=== PATIENT | male | born 1930 | race Caucasian/White ===

== ENCOUNTER 2016-06-14 16:16 | Inpatient (IN) | payer MEDICARE ==
[~2016-06-14] VITALS: Ht 175.3 cm; Wt 60.7 kg
[2016-06-14 16:49] LABS: BASOPHILS % (AUTO) 0 % (0-2); EOSINOPHILS # (AUTO) 0.2 10^3uL; EOSINOPHILS % (AUTO) 2 % (0-4); LYMPHOCYTES # (AUTO) 1.2 X10^3; MEAN CORPUSCULAR HGB CONC 33.6 g/dL (31.0-37.0); MEAN PLATELET VOLUME 10.3 FL (6.0-9.5); MONOCYTES # (AUTO) 0.6 X10^3; MONOCYTES % (AUTO) 10 % (3-11); NEUTROPHILS # (AUTO) 4.2 X10^3; NEUTROPHILS % (AUTO) 68 % (51-67); PLATELET COUNT 207 10^3uL (150-450); WHITE BLOOD COUNT 6.14 10^3uL (4.0-11.0)
[2016-06-14 16:51] LABS: MEAN CORPUSCULAR HEMOGLOBIN 33.2 PG (26.0-34.0); MEAN CORPUSCULAR VOLUME 99 FL (80-100)
[2016-06-14 16:58] LABS: ALBUMIN 4.2 g/dL (3.4-5.0); ANION GAP 16.1 MEQ/L (3-15); CALCULATED IONIZED CALCIUM 4.2 mg/dL (3.8-4.6); TOTAL PROTEIN 7.3 g/dL (6.4-8.5)
[2016-06-14 19:35] VITALS: BP 132/71
[2016-06-14] MEDS ORDERED: morphine INJ 4 MG/ML 1 ML SYRINGE IV PRN (19:40)
[2016-06-14] MEDS ORDERED: PROMETHAZINE HCL INJ 12.5 MG in SODIUM CHLORIDE 25 ML IV PRN (19:40)
[2016-06-14] MEDS ORDERED: POLYETHYLENE GLYCOL 17 GM (MIRALAX) PACKET PO PRN (19:40)
[2016-06-14] MEDS ORDERED: DOCUSATE SODIUM 100 MG (COLACE) CAP PO PRN (19:40)
[2016-06-14] MEDS ORDERED: MAGNESIUM HYDROXIDE 80MG/ML (MILK OF MAGNESIA) 30 ML UDC PO PRN (19:40)
[2016-06-14] MEDS ORDERED: ONDANSETRON 2 MG/ML (Z0FRAN) 2 ML VIAL IV PRN (19:40)
[2016-06-14] MEDS ORDERED: ONDANSETRON 4 MG (ZOFRAN) ORAL DISSOLVE TAB PO PRN (19:40)
--- NOTE | 2016-06-14 20:15 | NUR ---
Admitted to room. Oriented to room and hospital procedures. Daughter with patient. Patient is very weak. History taken from daughter. Patient is pale. Does shake his head up and down for yes. Web Solutions Architect very weak bilaterally. Bed alarm on fro safety. Tabs on fro safety. Fall precautions maintained.
[2016-06-14 20:44] VITALS: BP 132/71
--- NOTE | 2016-06-14 22:00 | NUR ---
Repositioned in bed. Verbalizes short sentences. Bed alarm on. Patient wanting to go to the bathroom. Did not understand how to use urinal. Stood patient at the side of the bed with two staff members. Patient still was not able to comprehend using the urinal. Returned patient back to bed. Patient had large soft bm in adult undergarment when he arrived from ED. No skin breakdown or erythema on coccyx or buttocks area. Skin very dry on feet. Scds placed on for a short while, then patient started to become restless and combative with staff. Scds removed for the time being.
[2016-06-14] MEDS: D5 1/2 NS W/KCL 20 MEQ/L 1,000 ML IV SCH (22:01)
[2016-06-14] MEDS: LORazepam 2 MG/ML (ATIVAN) 1 ML VIAL IV PRN (23:09)
--- NOTE | 2016-06-14 23:09 | NUR ---
Ativan 0.5mg administered IV for restlessness and combativeness. Wanting to go home. Wanting his car. At times patient does not appear to comprehend what staff is trying to tell him. Reoriented numerous times.
[2016-06-15] VITALS (8 sets, daily range): BP systolic 124–176; BP diastolic 58–99
[2016-06-15] MEDS ORDERED: D5W (IVPB) 50 ML IV ONE
[2016-06-15] MEDS: HALOPERIDOL 5 MG/ML (HALDOL) 1 ML AMP IV PRN ×2 (00:07→23:28)
--- NOTE | 2016-06-15 00:09 | NUR ---
Haldol 2mg diluted in 10cc D5W, administered IV over ten minutes. Patient combative and verbally upset with staff. Hand bottled beverage inspector weak, yet at times, bottled beverage inspector are good bilaterally. Moving constantly. Warm blankets placed on patient. He did relax for approximately ten minutes. Turns and rolls back and forth in bed. bed alarm remains on for safety.
[2016-06-15] MEDS: LORazepam 2 MG/ML (ATIVAN) 1 ML VIAL IV PRN ×2 (00:30→03:36)
--- NOTE | 2016-06-15 02:00 | NUR ---
Patient very restless. Yells out at times. Wanting to go home. Rolls back and forth in bed. Has made several attempts to get out of bed. Reoriented several times. Bed and tabs alarms on for safety.
[2016-06-15] MEDS ORDERED: SODIUM CHLORIDE FLUSH 10 ML SYR IV PRN (03:30)
[2016-06-15] MEDS ORDERED: SODIUM CHLORIDE FLUSH 3 ML SYR IV PRN (03:30)
--- NOTE | 2016-06-15 03:36 | NUR ---
Ativan 0.5mg administered IV for restlessness. Bed alarm on.
--- NOTE | 2016-06-15 05:30 | NUR ---
Patient has not rested yet tonight. Turns and moves legs constantly.Is not combative this morning. Bed alarm on. Skin warm and dry. Color pale. Verbalizes at times, but does not make sense. Incontinent several times tonight a large amount. Good francesca care given. Is not oriented to self, or place or time. Bed alarm on.
[2016-06-15 06:12] LABS: BASOPHILS % (AUTO) 0 % (0-2); EOSINOPHILS % (AUTO) 1 % (0-4); LYMPHOCYTES # (AUTO) 0.8 X10^3; MEAN CORPUSCULAR HGB CONC 35.1 g/dL (31.0-37.0); MEAN CORPUSCULAR VOLUME 95 FL (80-100); MEAN PLATELET VOLUME 10.3 FL (6.0-9.5); MONOCYTES # (AUTO) 0.7 X10^3; MONOCYTES % (AUTO) 12 % (3-11); NEUTROPHILS # (AUTO) 4.3 X10^3; NEUTROPHILS % (AUTO) 74 % (51-67); PLATELET COUNT 183 10^3uL (150-450)
[2016-06-15 06:28] LABS: MEAN CORPUSCULAR HEMOGLOBIN 33.4 PG (26.0-34.0)
[2016-06-15 06:51] LABS: ALBUMIN 3.7 g/dL (3.4-5.0); ANION GAP 11.5 MEQ/L (3-15)
--- NOTE | 2016-06-15 07:36 | NUR ---
UA obtained per sterile technique and taken to LAB. Bed alarm on.
[2016-06-15 07:43] LABS: BILIRUBIN,URINE Negative (Negative); CLARITY,URINE Clear; COLOR,URINE Yellow; GLUCOSE, URINE (UA) Negative (Negative); LEUKOCYTE ESTERASE ,URINE Negative (Negative); PH,URINE 7.5 (5.0 - 8.0); UROBILINOGEN,URINE 0.2 mg/dL (0.2-1.0)
[2016-06-15 08:03] LABS: URINE CENTRIFUGED VOLUME 12 mL
[2016-06-15 08:04] LABS: RBC,URINE 50-100 /HPF
[2016-06-15] MEDS ORDERED: morphine INJ 2 MG/ML 1 ML SYRINGE IV PRN (08:10)
[2016-06-15] MEDS: D5 1/2 NS W/KCL 20 MEQ/L 1,000 ML IV SCH ×2 (08:18→19:19)
--- NOTE | 2016-06-15 08:43 | NUR ---
NUTRITION ASSESSMENT Level 1 Patient: Bam Velasquez Age/Sex: 85/M Date Screened: 06-15-16 Weight: 133.7#/60.8 kg Height: 69 inches Primary Diagnosis: altered neurological status/stroke Diet Order: NPO Relevant labs: glucose 111 Food allergies: N Nutrition Assessment Criteria Age over 80: 4 points Body Mass Index (BMI) under 19: N Admission Screening Indicates Risk? 6 points Moderate/High Risk Diagnosis: 3 points TPN or PPN: N NPO or clear liquid diet: Yes Serum Glucose <70 or >180: N Hgb A1c >6.7: N/A Total: 13 points Risk Screen: __ Patient at low nutritional risk based on available data; reevaluate in 5-7 days __ Patient at moderate nutritional risk based on available data; reevaluate in 3-5 days _X_ Patient at high nutritional risk; complete Nutrition Assessment within 48 hours of admission.
[2016-06-15] MEDS ORDERED: D5W 50 ML BAG IV PRN (10:00)
--- NOTE | 2016-06-15 11:15 | NUR ---
NUTRITION ASSESSMENT Level II Patient: Bam Velasquez Age/Sex: 85/M Date Assessed: 06-15-16 ASSESSMENT Pertinent History: Patient admitted with altered neurological status/stroke and screened at high nutritional risk secondary to elderly age, diagnosis and weight loss. PMHx includes cerebral vascular disease, hx stroke x2, BPH, dementia and HTN. He lives alone at home but daughter helps. No GI concerns noted. Last documented weight was 149# in 2015. Noted expressive and receptive aphasia. No skin breakdown on admission per nursing assessment. Meds/Nutrition: D5 NS w/ KCl Weight: 133.7#/60.8 kg Height: 69 inches Body Mass Index (BMI): 19.8 [place] Body Weight : 160#/72.7 kg % IBW: 83% GASTROINTESTINAL Appetite: stated fair on admission, unable to assess since Diet Order: NPO Unintentional loss of >10 lbs. in 3 months: N Difficult to chew/swallow: unsure--possibly Diabetes: N Relevant Labs: glucose 111 Calculations for Nutritional Assessment Estimated calorie needs: 28-30 kcals/kg = 1,680-1,800 kcals Estimated protein needs: 1.3-1.5 g/kg = 79-91 g./day DIAGNOSIS 1. Nutrition Diagnosis: Inadequate intake related to possible dysphagia as evidenced by stroke with aphasia and concern for difficulty swallowing. NUTRITIONAL INTERVENTION Goal: Patient will receive adequate nutrition to meet his needs within an appropriate time-frame. Plan: Recommend speech therapy eval for safety in swallow. Will monitor length of time NPO and intake for adequacy when diet is advanced. Will follow closely. MONITORING & EVALUATION __ Monitor patients menu selections __ Monitor patients food intake per nursing notes _X_ Monitor NPO/clear liquid days __ Monitor lab values __ Monitor I&O _X_ Other--monitor swallow ability
--- NOTE | 2016-06-15 14:36 | NUR ---
MED REC COMPLETE--current med list obtained from interview with patient's daughter.
--- NOTE | 2016-06-15 18:34 | NUR ---
Patient slept only 30 minutes in the morning and 30 minutes in the afternoon. He was drowsy frequently but staff attempted to keep him up as much as possible so he will be tired tonight and hopefully less confused. He was toileted every 3 hours- he was usually incontinent.
--- NOTE | 2016-06-15 19:30 | NUR ---
Daughter reports giving frequent and increasing help to her father at home. Pressure alarm, tabs, and bed alarm have been used to prevent falls.
--- NOTE | 2016-06-15 23:28 | NUR ---
Patient agitated, not able to rest, attempting to climb out of bed and out of chair. Haldol given per PRN list, see EMAR. Patient unable to rest after this. Will continue to monitor.
[2016-06-16] MEDS ORDERED: meTOprolol 5 MG/5 ML (LOPRESSOR) VIAL IV PRN (02:25)
[2016-06-16] MEDS ORDERED: HALOPERIDOL 5 MG/ML (HALDOL) 1 ML AMP IM ONE (02:25)
[2016-06-16] MEDS ORDERED: HALOPERIDOL 5 MG/ML (HALDOL) 1 ML AMP IV ONE (02:35)
--- NOTE | 2016-06-16 02:35 | NUR ---
Patient given dose of Haldol at this time for agitation. Notified by La Lozano RN that patient's pulse has sustained over 130s-140s. Telehospitalist notified. Orders received, Metoprolol given per order. Will continue to monitor.
--- NOTE | 2016-06-16 03:20 | NUR ---
Patient resting in chair with eyes closed. Respirations unlabored. Appears comfortable. No needs at this time. Will continue to monitor.
[2016-06-16 04:00] VITALS: BP 180/98
--- NOTE | 2016-06-16 06:19 | NUR ---
Patient has been in martha-chair through most of night, up to toilet, though has rested in chair and dozed on and off through shift. Agitated when awake. Resting with eyes closed at this time. No needs.
[2016-06-16 07:43] VITALS: BP 159/100
--- NOTE | 2016-06-16 09:31 | NUR ---
Up with assist of 2 to radiology for chest x-ray.
[2016-06-16 09:32] LABS: BASOPHILS % (AUTO) 0 % (0-2); EOSINOPHILS % (AUTO) 0 % (0-4); LYMPHOCYTES # (AUTO) 0.9 X10^3; MEAN CORPUSCULAR HGB CONC 35.1 g/dL (31.0-37.0); MEAN CORPUSCULAR VOLUME 95 FL (80-100); MONOCYTES # (AUTO) 0.8 X10^3; MONOCYTES % (AUTO) 11 % (3-11); NEUTROPHILS # (AUTO) 5.7 X10^3; NEUTROPHILS % (AUTO) 77 % (51-67); PLATELET COUNT 208 10^3uL (150-450); WHITE BLOOD COUNT 7.45 10^3uL (4.0-11.0)
[2016-06-16 09:47] LABS: MEAN CORPUSCULAR HEMOGLOBIN 33.5 PG (26.0-34.0)
--- NOTE | 2016-06-16 10:15 | NUR ---
Weaned O2 to 3 liters NC. Sat. has been 96% on 5 liters. Will recheck. Addendum: 06/16/16 at 1736 by Elisa De Paz RN Lilia chart
--- NOTE | 2016-06-16 10:45 | NUR ---
O2 sat.= 96% on 3 liters. Turned O2 down again to 2 liters. Addendum: 06/16/16 at 1737 by Elisa De Paz RN Wrong chart
[2016-06-16 11:35] VITALS: BP 139/86
[2016-06-16] MEDS: ASPIRIN 81 MG CHEW (CHILDREN'S ASA) PO SCH (12:52)
[2016-06-16] MEDS: CLOPIDOGREL 75 MG (PLAVIX) TAB PO SCH (12:52)
[2016-06-16 16:00] VITALS: BP 125/66
--- NOTE | 2016-06-16 18:46 | NUR ---
Again attempted to keep the patient awake all day- he had a couple of 30 minute naps but was only in bed a short time. Spoke clearly to staff at times but at other times did not respond at all when asked a question. Fed by ELECTROLYSIS ENGINEER and daughter- ate well at breakfast and lunch.
[2016-06-16 20:12] VITALS: BP 155/85
[2016-06-16] MEDS ORDERED: DONEPEZIL 10 MG (ARICEPT) TAB PO SCH (21:00)
[2016-06-17 00:07] VITALS: BP 134/81
[2016-06-17 05:04] VITALS: BP 170/81
--- NOTE | 2016-06-17 07:32 | NUR ---
Pt sitting upright in martha chair, awake, alert, nonverbal, does not follow commands. Pressure pad in place in chair, frequent visual checks. call light within reach, but does not call for assist. Remains on RA, resp even, nonlab. Skin warm dry, pale. Will cont to monitor patient.
[2016-06-17 07:37] VITALS: BP 173/96
[2016-06-17] MEDS ORDERED: ENOXAPARIN 40 MG/0.4 ML (LOVENOX) SYR SC SCH (09:00)
[2016-06-17] MEDS: CLOPIDOGREL 75 MG (PLAVIX) TAB PO SCH (09:03)
[2016-06-17] MEDS: ASPIRIN 81 MG CHEW (CHILDREN'S ASA) PO SCH (09:03)
--- NOTE | 2016-06-17 09:25 | NUR ---
Attempted to give patient medications- Plavix and Aspirin crushed and placed in applesauce, patient refused to swallow medication/applesauce mixture-does not close his mouth- yelled at nurse "No I don't want it!" Would not talk anymore or answer questions/follow commands. Swabbed mouth with water/swabs- will cont to provide oral care and reposition every 2H. Pt transferred back to bed from martha-chair using 3 assist- total lift. pt would not put feet on floor to bear weight. Pt was incont of urine- pericare provided, attends changed. Positioned on Rt side- pillows placed behind back, under heels and between knees. Scabbed over abrasion noted to Left thigh- no drainage. Addendum: 06/17/16 at 0935 by Stephanie Tobar RN bed alarm and tabs alarm in place for pt safety.
[2016-06-17 11:40] VITALS: BP 151/67
--- NOTE | 2016-06-17 12:43 | NUR ---
Julio ROJAS in room for swallow eval. Sister also at bedside.
[2016-06-17] MEDS ORDERED: D5 1/2 NS W/KCL 20 MEQ/L 1,000 ML IV SCH (13:30)
--- NOTE | 2016-06-17 14:00 | NUR ---
Pt back to room from CT of head.
--- NOTE | 2016-06-17 14:55 | NUR ---
MULTIDISCIPLINARY MTG/DR. VILLALOBOS: Pt. admitted with what was initially thought to be a stroke. Pt. did have some facial drooping but this is no longer present. Pt. CT was negative upon admission. Pt. has been more delirious and incontinent. Unable to get an MRI due to Pt. not being able to tolerate this. Pt. is not tolerating PT and has not had any progression and is refusing to eat and take medications. Pt. has had trouble with aspirating and was placed on thickened liquids and pureed diet. At this point in time staff will hold meals unless Pt. becomes more alert and wishes to eat. In the meantime will start maintenance fluids. Pt. will have another CT today and after these results are available doctor will discuss with family Pt. prognosis. Pt. DPOA is in [place] and he plans to be here this weekend. No discharge needs identified at this time.
--- NOTE | 2016-06-17 15:22 | NUR ---
Dr. Brownlee in family waiting room with patients daughter Ruth and Patients sister Sameer- having phone conference with Son that lives in [place].
[2016-06-17 16:09] VITALS: BP 141/83
--- NOTE | 2016-06-17 16:52 | NUR ---
Verbal consent to initiate Hospice verified with Son/DPOA Bam Elizabeth, by phone. Verified by Dr. Brownlee and this RN.
[2016-06-17] MEDS ORDERED: morphine ORAL CONC 20 MG/ML (ROXANOL) 1 ML SYRINGE SL PRN (17:45)
[2016-06-17] MEDS ORDERED: ARTIFICIAL TEARS OPHTHALMIC OINTMENT 3.5 GM TUBE OU PRN (17:45)
[2016-06-17] MEDS ORDERED: BISACODYL 10 MG SUPP (DULCOLAX) PR PRN (17:45)
[2016-06-17] MEDS ORDERED: LORazepam ORAL CONCENTRATE 2 MG/ML (ATIVAN) SYR PO/SL PRN (17:45)
[2016-06-17] MEDS ORDERED: ALBUTEROL 0.083% NEB SOLUTION 2.5 MG/3 ML VIAL INH PRN (17:45)
[2016-06-17] MEDS ORDERED: SCOPOLAMINE 1.5 MG (TRANSDERM-SCOP) PATCH TD SCH (17:45)
--- NOTE | 2016-06-17 18:34 | NUR ---
Pt resting in bed, daughter at bedside. Repositioned Q2H. Oral care provided when positioning but patient dislikes this and gets restless. IV SL intact. [facility] here talking to family in waiting room. SCD's in place.
--- NOTE | 2016-06-17 19:35 | NUR ---
Pt. resting with HOB slightly elevated; eyes open; looks around when this nurse holds his hands and speaks to him. Pt. appears to be in no distress. Family at bedside; Courtesy Cart outside door. Norma from Hospice relays plan for tomorrow and obtaining [id number] DPOA signature. Comfort care.
--- NOTE | 2016-06-17 20:24 | NUR ---
SCD's removed at this time; pt. 'winces' when they go off. Pt. resting on left side; tv on; resp are unlabored; pt. is 'mouth breathing'. Appears to be in no distress currently.
--- NOTE | 2016-06-17 21:40 | NUR ---
Pt. changed of incontinent void; repositioned for comfort; tolerated activity well. Oral care attempted; pt. does not tolerate; pt. given reassurance. Pt. does not appear to be in distress.
[2016-06-18] MEDS: morphine ORAL CONC 20 MG/ML (ROXANOL) 1 ML SYRINGE SL PRN ×2 (01:41→14:43)
--- NOTE | 2016-06-18 01:41 | NUR ---
Roxanol 10 mg oral pain med given for facial appearance of discomfort; restlessness; facial flushing.
--- NOTE | 2016-06-18 06:16 | NUR ---
Pt. turned and repositioned regularly throughout shift; incontinent voids changed; oral care attempted although pt. resists those efforts. Pt. awake with eyes open majority of the night; rested quietly; pain med given x 1. Pt. nonverbal; tries to answer at times although speech not understandable. Pt. has not appeared anxious. Respirations are currently 15 per minute. Safety measures in place.
--- NOTE | 2016-06-18 09:28 | NUR ---
Nutrition Follow Up: Patient is now on comfort care after discussion with physician and family; family stated he would not want nutrition support. Plans are being made to go to Hospice. Pt. has not been tolerating oral care and continues to refuse to eat or drink. Weight today: N/A 1. In light of comfort care, will sign off on nutrition services at this time.
--- NOTE | 2016-06-18 12:00 | NUR ---
Pt rests in bed this shift. Turned and changed PRN and for comfort. Family at bedside. Pt is alert yet nonverbal. Pt's speech is unintelligible. Bed bath and full facial shave was provided, family was extremely appreciative of this. Family denies needs at this time. Will continue to monitor.
--- NOTE | 2016-06-18 15:25 | NUR ---
Pt to be discharged from current inpatient account, to be admitted as inpatient hospice with Rah Melara at this time.
== END 2016-06-18 15:25 | disposition hospice, inpatient (51) | DRG 66 ==
LOC: EDUNIT# 16:16 → ED 16:18 → MED/SURG 18:52
PROVIDERS: ADMIT Internal Medicine; ATTEND Internal Medicine
DX: I63.9 Cerebral infarction, unspecified (principal); F80.2 Mixed receptive-expressive language disorder; G94 Other disorders of brain in diseases classified elsewhere; Z51.5 Encounter for palliative care; Z66 Do not resuscitate; E86.0 Dehydration; R53.1 Weakness; I69.398 Other sequelae of cerebral infarction; F01.50 Vascular dementia, unspecified severity, without behavioral disturbance, psychotic disturbance, mood disturbance, and anxiety; R41.81 Age-related cognitive decline; R00.0 Tachycardia, unspecified; I10 Essential (primary) hypertension; Z79.02 Long term (current) use of antithrombotics/antiplatelets; Z79.82 Long term (current) use of aspirin; R40.2422 Glasgow coma scale score 9-12, at arrival to emergency department
CPT/HCPCS: 36415; 70450; 71020; 80053; 80069; 81003; 81015; 83735; 84484; 85025; 85610; 86140; 93005; 93010; 93306; 93880; 99284; 99285

== ENCOUNTER → 2016-06-14 | Outpatient (CLI) | payer MEDICARE | LOC: EMS 14:10 | PROVIDERS: ATTEND Emergency Medicine | DX: I63.9 Cerebral infarction, unspecified (principal) ==

== ENCOUNTER 2016-06-18 15:24 | Inpatient (IN) | payer OTHER, MEDICARE ==
--- NOTE | 2016-06-18 15:25 | NUR ---
Pt admitted to inpatient hospice at this time. Skin warm, dry, intact. Resprs nonlabored, even on RA. Pt is alert yet nonverbal. Pt occasionally attempts to verbally communicate, though it is unintelligible. SL intact. See admission database for additional assessment info.
[2016-06-18] MEDS ORDERED: ONDANSETRON 2 MG/ML (Z0FRAN) 2 ML VIAL IV PRN (15:35)
[2016-06-18] MEDS ORDERED: BISACODYL 10 MG SUPP (DULCOLAX) PR PRN (15:35)
[2016-06-18] MEDS ORDERED: ARTIFICIAL TEARS OPHTHALMIC OINTMENT 3.5 GM TUBE OU PRN (15:35)
[2016-06-18] MEDS: SCOPOLAMINE 1.5 MG (TRANSDERM-SCOP) PATCH TD SCH (15:35)
[2016-06-18] MEDS ORDERED: PROMETHAZINE HCL INJ 25 MG in SODIUM CHLORIDE 25 ML IV PRN (15:35)
--- NOTE | 2016-06-18 19:15 | NUR ---
Pt rests in bed this shift. Turned and changed PRN and for comfort. Family at bedside. Pt is alert yet nonverbal. Pt's speech appears to fluctuate in clarity, as family members state that pt's son spoke with the pt on the phone this afternoon and the pt was heard to speak in clear, full sentences. Upon exam by staff after this, pt's speech was unintelligible. Bed bath and full facial shave was provided earlier in shift, family was extremely appreciative of this. Family denies needs at this time. Report given to Chaparrita Lang RN; care relinquished. Addendum: 06/18/16 at 1951 by Caitie Corbin RN [facility] nurse here earlier in evening.
--- NOTE | 2016-06-18 23:47 | NUR ---
Patient moved to room 307. Eyes open, alert, non verbal shakes head and tries to voice Yeah Yeah, and answers no to questions.
[2016-06-19] MEDS: morphine ORAL CONC 20 MG/ML (ROXANOL) 1 ML SYRINGE SL PRN ×3 (05:01→12:28)
--- NOTE | 2016-06-19 05:05 | NUR ---
repositioned throughout night, frowns and curses at staff with this repositioning, shakes head and voices yes when asked if he is hurting. Prn Roxanol 10 mg. Oral and francesca care provided. Resting quietly
--- NOTE | 2016-06-19 06:01 | NUR ---
Awake in bed with eyes open, denies any discomfort verbalizes "just wanna sleep".
--- NOTE | 2016-06-19 07:52 | NUR ---
Patient resting on right side in bed upon shift assessment. Eyes open and patient does respond to nurses questions with garbled speech. Denies pain. No apparent signs of pain or distress. HR RRR. Respirations even and non-labored on roomair. Will continue to reposition and provide PRN medication for comfort.
[2016-06-19 08:04] VITALS: BP 123/68
[2016-06-19] MEDS: LORazepam ORAL CONCENTRATE 2 MG/ML (ATIVAN) SYR PO/SL PRN (09:09)
--- NOTE | 2016-06-19 12:38 | NUR ---
Hospice nurse Eva here to see patient. After repositioning PRN Roxanol provided per her request.
--- NOTE | 2016-06-19 18:10 | NUR ---
Patient sleeping on left side in bed. Minimally responsive since 1400. Does not tolerate lunch or supper tray. Daughter and sister at bedside throughout day. No apparent signs of pain or distress. Will continue to monitor.
--- NOTE | 2016-06-20 07:20 | NUR ---
Patient sleeping in bed upon shift assessment. Does arouse easily to verbal stimuli then returns to sleep. Facial grimacing noted with movement, PRN Roxanol provided. Respirations are shallow and mohinder at a rate of 8 per minute. HR RRR. Patient repositioned for comfort. Will continue to monitor.
[2016-06-20] MEDS: morphine ORAL CONC 20 MG/ML (ROXANOL) 1 ML SYRINGE SL PRN (07:40)
--- NOTE | 2016-06-20 09:11 | NUR ---
CELIA Pearson from [facility] here to see patient. No concerns or needs at this time.
[2016-06-20] MEDS: LORazepam ORAL CONCENTRATE 2 MG/ML (ATIVAN) SYR PO/SL PRN (09:43)
--- NOTE | 2016-06-20 18:26 | NUR ---
No oral intake noted on day shift. Patient non-responsive. Has incontinent void at 1615 that was foul smelling. Numerous family members at bedside throughout day shift. Will continue to monitor.
[2016-06-20] MEDS: SCOPOLAMINE 1.5 MG (TRANSDERM-SCOP) PATCH TD SCH (19:36)
--- NOTE | 2016-06-21 06:02 | NUR ---
Patient unresponsive throughout shift. Has been repositioned throughout night for comfort. Incontinent x1 this AM. Redness and tenderness noted around IV site to right AC, IV DC'd at this time. Patient moans slightly when repositioned but returns to resting when staff not touching him. No needs at this time. Will continue to monitor.
[2016-06-21] MEDS: morphine ORAL CONC 20 MG/ML (ROXANOL) 1 ML SYRINGE SL PRN ×3 (07:32→15:40)
--- NOTE | 2016-06-21 07:32 | NUR ---
Pt's daughter comes out of room somewhat frantic, stating that pt is in pain. Pt is seen to have a furrowed brow, moving arms and legs in bed, and quietly moaning. PRN Roxanol 10mg given at this time. Daughter reportedly had a long converstaion with the night baker nurse about how the DPOA requests that the pt is not heavily medicated and be somewhat alert when he gets here this afternoon. Daughter told this nurse this am "that is out the window, because I cannot stand to see him like this. We want him comfortable and out of pain, no matter how alert he is". Will continue offering meds when necessary.
[2016-06-21] MEDS: LORazepam ORAL CONCENTRATE 2 MG/ML (ATIVAN) SYR PO/SL PRN ×2 (08:58→11:18)
--- NOTE | 2016-06-21 08:58 | NUR ---
PRN Ativan given at this time per family request. Pt's brow continues to furrow, extremities not as mobile as previously noted. Pt's eyes remain closed this morning. Family denies other needs.
[2016-06-21] MEDS ORDERED: ATROPINE SULFATE INJ PRN (09:50)
--- NOTE | 2016-06-21 10:14 | NUR ---
PRN Roxanol given at this time by Ashok Guzman, jig box operator per family's request. 16Fr eaton placed by Ashok Guzman RN per Dr Stafford's orders. Approx 300mL clear, smith urine noted. Family denies needs at this time.
--- NOTE | 2016-06-21 11:20 | NUR ---
PRN Ativan given at this time per family's request. Jolly, Hospice SW here. Short periods of apnea noted, approx 15 secs every 2-3 minutes. Explained process to family in room. Jolly provided end of life booklet to family. Sister and daughter very tearful at this time. Encouragements provided. Pt rests in bed, moves arms occasionally. Brow no longer furrowed. Appears comfortable. Will continue assessing comfort frequently.
--- NOTE | 2016-06-21 11:41 | NUR ---
MULTIDISCIPLINARY MTG/DR. TABOR: Family was considering moving Pt. to [facility]. fluorescent lighting model maker nurse feels Pt. is progressing and moving the Pt. is not something that needs to happen at this time. Pt. son from [place] is expected to arrive today. Staff continuing to make Pt. comfortable.
[2016-06-21] MEDS ORDERED: ATROPINE SULFATE 1% OPHTH SOLN 5 ML BTL SL PRN (13:50)
--- NOTE | 2016-06-21 15:40 | NUR ---
PRN Roxanol given at this time. Pt rests in bed, unresponsive. Resprs labored, even, rate approx 20 at this time. Pt turned to R sitde, fresh briefs and chux placed beneath pt. Stat lock for Flores placed on R thigh. Multiple family members in room, DPOA and daughter in law here from [place]. Family denies needs at this time.
--- NOTE | 2016-06-21 18:09 | NUR ---
Family all left room approx 1700. Pt unresponsive, resprs nonlabored, even, rate of approx 16. No apnea noted. Will call family if any changes are noted. Flores patent to DD; maria, clear urine draining. Bed alarm on for pt safety.
--- NOTE | 2016-06-21 20:00 | NUR ---
Patient resting well in bed. Resperations 16. No periods so apnea noted. Patient repositioned in bed. Oral care given. No family members here this evening. Patient is quiet and comfortable at this time. Flores catheter small amount of yellow urine.
[2016-06-22] MEDS: morphine ORAL CONC 20 MG/ML (ROXANOL) 1 ML SYRINGE SL PRN ×2 (00:06→04:12)
--- NOTE | 2016-06-22 00:06 | NUR ---
Roxanol 20 mg administered IV for apparent discomfort. Has furrowed brow. Repositioned. HOB elevated to 35 degrees.
--- NOTE | 2016-06-22 02:00 | NUR ---
Resting well. Respirations even and non-labored. Very short periods of apnea.
--- NOTE | 2016-06-22 04:13 | NUR ---
Patient appears in discomfort, with furrowed brow and forehead. Roxanol 20 mg administered. Patient tolerates well.
--- NOTE | 2016-06-22 05:38 | NUR ---
Rested at long intervals. Does not moan when being turned. Oral care given several times. Tolerates well. No family here last evening or tonight. Patient rests well.
--- NOTE | 2016-06-22 08:00 | NUR ---
Patient respirations 16 and regular. Inspiratory wheeze with respirations. HR 97 and irregular. Skin pale and warm. Urine draining per eaton dark yellow urine. Oral care done. Patient unresponsive.
--- NOTE | 2016-06-22 10:20 | NUR ---
Son and assembler dielectric heater present in room. Patient resting. No S/S of discomfort. Oral care done.
[2016-06-22] MEDS ORDERED: OXYCODONE 20 MG/ML PO SCH (12:00)
[2016-06-22] MEDS: morphine ORAL CONC 20 MG/ML (ROXANOL) 1 ML SYRINGE PO SCH ×3 (12:19→23:23)
--- NOTE | 2016-06-22 12:41 | NUR ---
Patient turned to left side. Oral care completed. Respirations 7/min. Family present in room.
--- NOTE | 2016-06-22 17:41 | NUR ---
Patient has rested quietly all day. Respirations have been for the most part, regular. Respirations slow after position change, but then become regular again. Respirations have slowed some throughout the day. Currently between 8 and 12/minute. Family has been in to sit with patient and to visit with each other. Family asks appropriate questions regarding dying process. Patient has been turned and repositioned approximately every 2-2 and 1/2 hours throughout day and has had oral care approximately every 2 hours. Patient has shown no signs of discomfort or pain today. Has been medicated with Roxinol q6h on schedule.
[2016-06-23] MEDS: morphine ORAL CONC 20 MG/ML (ROXANOL) 1 ML SYRINGE PO SCH ×4 (05:27→23:46)
--- NOTE | 2016-06-23 06:27 | NUR ---
Patient rests in bed throughout night. Repositioned per family request. Respirations even and unlabored, 18/min. No needs at this time.
--- NOTE | 2016-06-23 07:23 | NUR ---
Patient remains unresponsive upon shift assessment. Daughter at bedside. Respirations even and non-labored on roomair. HR irregular and tachy. No mottling noted to BLE. Flores catheter intact and draining orange urine with sediment. Patient repositioned at this time for comfort. Oral care performed. Updated patient on plan of care for shift. Call light within daughter's reach.
--- NOTE | 2016-06-23 08:45 | NUR ---
Eva RN from [facility] here to see patient. No new orders or concerns.
--- NOTE | 2016-06-23 18:19 | NUR ---
Patient status unchanged during day shift. Remains unresponsive. Respirations even and non-labored. Skin dusky but warm. No mottling noted to BLE. Daughter at bedside. Multiple family members call for update. Will continue to monitor.
[2016-06-23] MEDS ORDERED: SCOPOLAMINE PATCH REMOVAL TOP SCH (19:29)
[2016-06-23] MEDS ORDERED: SCOPOLAMINE 1.5 MG (TRANSDERM-SCOP) PATCH TD SCH (19:30)
--- NOTE | 2016-06-23 20:00 | NUR ---
Resting in bed. Patient is unresponsive. Oral care given. Moisture to lips. Repositioned. Daughter here with patient. Respirations even and non-labored. No periods of apnea. HOB elevated 30 degrees. Scopolamine patch intact behind right ear. No mottling of extremities.
[2016-06-24] MEDS: morphine ORAL CONC 20 MG/ML (ROXANOL) 1 ML SYRINGE PO SCH ×3 (06:14→17:41)
--- NOTE | 2016-06-24 06:26 | NUR ---
Turned and repositioned q 2 hours tonight. Respirations remain 16 per minute. Patient remains unresponsive. Random oxygen saturation readings from 68 to 77. No mottling of extremities. Flores cath emptied with 20cc output. No family here during the night. Patient resting peacefully.
--- NOTE | 2016-06-24 07:15 | NUR ---
Pt unresponsive, daughter at bedside. Resprs nonlabored, even, rate of approx 16. Skin warm, dry, intact. Lower extremities cool to touch. Radial pulse difficult to palpate. Son in [place] and sister both called the floor this morning, update provided. Will continue to monitor.
--- NOTE | 2016-06-24 09:45 | NUR ---
Eva Tavarez, master craftsman here at this time. No new orders or concerns. She states "you all are doing a great job of keeping him comfortable. Keep it up".
--- NOTE | 2016-06-24 11:50 | NUR ---
SUSAN Roxanol given at this time. Daughter requests an electric razor so she can shave his face. Provided. Daughter states "I can't wait for him to be back with his daddy, who he hasn't seen in 50 years, and my brother". Pt continues to be unresponsive. Resprs nonlabored, even, rate of approx 18 at this time. Daughter denies needs.
--- NOTE | 2016-06-24 13:23 | NUR ---
MULTIDISCIPLINARY MTG/DR. AHMADI: Pt. has had slight changes from yesterday and has started mottling. Staff are making sure Pt. is comfortable. Pt. family continue to be here with Pt. during the day. No discharge needs identified at this time.
--- NOTE | 2016-06-24 16:15 | NUR ---
Pt repositioned onto L side at this time per family request. Jolly, [facility] here at this time. Pooling of blood noted on pt's R lateral hip. Mottling noted on bilateral knee caps and feet. Resprs nonlabored, even, rate of 20. Family at bedside. Denies needs.
--- NOTE | 2016-06-24 17:41 | NUR ---
Notified by [employer] that family thinks the pt has passed. Long periods of apnea noted, but 2 resprs heard and faint pulse noted on R carotid sporadically. After approx 10 mins, resprs ceased, heart rate ceased. Verified by this nurse and Collette Leigh RN. TOD declared 1724. Sister and granddaughter in room. Sister to notify rest of family. Dr Kohler called, verbal order to release the body. call worker hospice nurse notified.
--- NOTE | 2016-06-24 19:35 | NUR ---
Aliyah here, patient dismissed to home.
== END 2016-06-24 17:24 | disposition expired | DRG 56 ==
LOC: MED/SURG 15:25
PROVIDERS: ADMIT Internal Medicine; ATTEND Internal Medicine
DX: I69.320 Aphasia following cerebral infarction (principal); G93.40 Encephalopathy, unspecified; I69.354 Hemiplegia and hemiparesis following cerebral infarction affecting left non-dominant side; Z51.5 Encounter for palliative care; Z66 Do not resuscitate; F03.90 Unspecified dementia, unspecified severity, without behavioral disturbance, psychotic disturbance, mood disturbance, and anxiety; R33.8 Other retention of urine; R13.10 Dysphagia, unspecified; I10 Essential (primary) hypertension; N40.1 Benign prostatic hyperplasia with lower urinary tract symptoms; Z96.652 Presence of left artificial knee joint